=== PATIENT | male | born 1960 | race Two or more races ===

== ENCOUNTER 2018-12-22 11:39 | Emergency (ER) | payer MEDICAID ==
[~2018-12-22] VITALS: Ht 167.6 cm; Wt 73.0 kg
[2018-12-22] MEDS ORDERED: MAGNESIUM 2 G PREMIX 50 ML IV STA (12:18)
[2018-12-22] MEDS ORDERED: METHYLPREDNISOLONE SOD SUCC 125 MG/2 ML VIAL IV STA (12:18)
[2018-12-22] MEDS ORDERED: ALBUTEROL (0.083%) 2.5MG/3ML NEB HHN STA (12:18)
[2018-12-22] MEDS ORDERED: IPRATROPIUM BROMIDE (0.02%) 0.5MG/2.5ML NEB HHN STA (12:18)
[2018-12-22 12:20] VITALS: BP 141/75
== END 2018-12-22 14:47 | disposition home or self-care (01) ==
LOC: ER 11:39
DX: J45.901 Unspecified asthma with (acute) exacerbation (principal)
CPT/HCPCS: 71045; 94644; 96365; 96375; 99285; J2930; J3475; J7611; Z7610